=== PATIENT | male | born 1995 | race Two or more races ===

== ENCOUNTER 2017-02-19 09:36 | Emergency (ER) | payer OTHER ==
[~2017-02-19] VITALS: Ht 182.9 cm; Wt 106.8 kg
[~2017-02-19 09:36] MED LIST: ADDERALL20 MG PO; AMOXICILLIN875 MG PO; AUGMENTIN875 MG PO; CEFDINIR300 MG PO; FLEXERIL10 MG PO; FOCALIN XR20 MG PO; FOCALIN XR25 MG PO; FOCALIN XR30 MG PO; LAMICTAL100 MG PO; LAMICTAL25 MG PO; LEXAPRO10 MG PO; LISINOPRIL10 MG PO; MOTRIN600 MG PO; PERCOCET 5/31 TABLET PO; PROZAC20 MG PO; RISPERDAL1 MG PO; RISPERDAL2 M1 PO; RISPERDAL2 MG PO; RISPERIDONE4 MG PO; SAPHRIS5 MG SL; TYLENOL REGULA325 MG PO; ULTRAM50 MG PO; VICODIN,LORT1 TABLET PO; WELLBUTRIN SR150 MG PO; WELLBUTRIN XL150 MG PO; WHEELCHAIR1 EACH MC; ZITHROMAX250 MG PO; ZOFRAN4 MG PO
[2017-02-19 10:30] VITALS: BP 143/83
== END 2017-02-19 10:30 | disposition home or self-care (01) ==
LOC: EME 09:36
DX: J02.0 Streptococcal pharyngitis (principal); F17.200 Nicotine dependence, unspecified, uncomplicated; F12.10 Cannabis abuse, uncomplicated; F90.9 Attention-deficit hyperactivity disorder, unspecified type
CPT/HCPCS: 99281; 99283; J0561; J1100

== ENCOUNTER 2017-12-05 22:44 | Emergency (ER) | payer OTHER ==
[~2017-12-05] VITALS: Ht 182.9 cm; Wt 115.9 kg
[2017-12-05 22:49] VITALS: BP 152/94
== END 2017-12-06 00:35 | disposition home or self-care (01) ==
LOC: EME 22:44
DX: B34.9 Viral infection, unspecified (principal)
CPT/HCPCS: 99281; 99283